=== PATIENT | female | born 1995 | race Caucasian/White ===

== ENCOUNTER → 2017-09-10 | Outpatient (CLI) | payer OTHER | END | disposition home or self-care (01) | LOC: LAB 15:08 | DX: Z01.812 Encounter for preprocedural laboratory examination (principal) ==

== ENCOUNTER → 2017-09-11 | Outpatient (CLI) | payer OTHER | END | disposition home or self-care (01) | LOC: PPH VACUNA 16:42 | DX: Z23 Encounter for immunization (principal) ==

== ENCOUNTER 2018-05-16 13:58 | Outpatient (CLI) | payer OTHER | END 2018-05-16 14:04 | disposition home or self-care (01) | LOC: SONOGRAMA 13:58 | DX: N64.89 Other specified disorders of breast (principal) ==

== ENCOUNTER 2020-03-04 15:46 | Inpatient (IN) | payer OTHER ==
[~2020-03-04] VITALS: Ht 167.6 cm; Wt 59.0 kg
[2020-03-08] MEDS ORDERED: Lantus 1000 UNITS/10 SUBCUTANEO (14:37)
[2020-03-08] MEDS ORDERED: HUMALOG100 UNIT/1 SUBCUTANEO ×3 (14:37)
== END 2020-03-08 16:30 | disposition home or self-care (01) | DRG 639 ==
LOC: ER 15:46 → ICU-2 20:04 → MEDI 03-07 09:12
PROVIDERS: ADMIT Internal Medicine; ATTEND Internal Medicine
PROC: 4A033R1 Measurement of Arterial Saturation, Peripheral, Percutaneous Approach (ICD-10-PCS; 2020-03-04)
PROC: 4A12X4Z Monitoring of Cardiac Electrical Activity, External Approach (ICD-10-PCS; principal; 2020-03-07)
DX: E10.10 Type 1 diabetes mellitus with ketoacidosis without coma (principal); E86.0 Dehydration; E87.6 Hypokalemia; Z20.828 Contact with and (suspected) exposure to other viral communicable diseases